=== PATIENT | female | born 1950 | race Two or more races ===

== ENCOUNTER 2016-08-29 10:38 | Inpatient (IN) | payer MEDICARE, MEDICAID ==
--- NOTE | 2016-08-29 10:44 | ED Physician Chart ---
Chief Complaint/HPI - Patient Information Date Seen:: 08/29/16 Time Seen:: 10:40 Chief Complaint:: skin infection History of Present Illness:: 66-year-old female history of schizophrenia and dementia, brought in by EMS from alf facility with acute, worsening, constant, moderate to severe, skin infection on the left confucianism of her face 4 days. Has associated pain in the area when she wears her glasses. Allergies:: Allergies Allergy/AdvReac Type Severity Reaction Status Date / Time MDX No Known Allergies - Nka Allergy Verified 08/04/14 17:01 [No Known Allergies - Nka] Historian:: Patient, EMS Review:: Nurse's Note Reviewed, EMS run form Reviewed Review of Systems - Review of Systems Other: Complete system review otherwise unremarkable except as noted in HPI. Past Medical History - Past Medical History Past Medical History: Dementia Family History: None Social History: Non Smoker, No Alcohol, No Drug Use, Care Facility Surgical History: None Psychiatricy History: Schizophrenia Medication: Reviewed Family Medical History - Family Member Mother History Unknown: Yes Ethnicity: Physical Exam - Physical Examination Other:: INITIAL VITAL SIGNS: Reviewed by me GENERAL: Alert and interactive, demented but cooperative. No acute distress HEAD: Head is normocephalic and atraumatic EYES: EOMI. . No scleral icterus. No conjunctival injection ENT: Moist mucous membranes. NECK: Supple. No masses. Full range of motion RESPIRATORY: No tachypnea. Clear breath sounds bilaterally. No wheezing, rales, or rhonchi CV: Regular rate and rhythm. No murmurs, rubs, or gallops ABDOMEN: Soft, non-distended, non-tender. No guarding. No rebound. No masses. EXTREMITIES: No deformity. No cyanosis. No edema. SKIN: There is a 2 x 1 cm area of induration with slight fluctuant mass on the left confucianism. There is also surrounding erythema consistent with cellulitis. NEUROLOGIC: Alert and oriented. Face is symmetric. Speech is normal. Moves all extremities equally. Motor and sensory distally intact. Assessment - Procedures Procedures:: Abscess Incision and Drainage with irrigation by me: Location: Left confucianism Anesthesia: Local 1% Lidocaine Technique: Irrigated. Disrupted loculations w/ instrumentation Packing: None Complications: Neurovascularly intact post procedure 48 hour wound check. Scar minimization instructions given. Informed Consent: Procedure/risk/benefits explained by MD: Yes ED Septic Shock - . Is Septic Shock (SBP<90, OR Lactate>4 mmol\L) present?: No Reassessment (Disposition) - Reassessment Reassessment:: The patient's blood pressure was elevated (>120/80) but appears stable without evidence of hypertensive emergency or urgency. The patient was counseled about the risks hypertension urged to pursue outpatient monitoring and therapy within a week with her primary care physician. I&D performed to left confucianism. Copious amount of purulent fluid extracted. Surrounding cellulitis treated with Bactrim and Keflex. Hypokalemia 3.4. Discussed case with admitting physician. Concern given underlying dementia and other comorbidities at the cellulitis may need further workup and treatment especially Given that its on her face. Reassessment Condition:: Unchanged - Diagnosis Diagnosis:: Abscess, left confucianism of face Cellulitis, left confucianism of face Hypokalemia Elevated blood pressure without the diagnosis of hypertension - Patient Disposition Discharge/Transfer:: Acute Care w/in this hosp Admitted to:: Med/Surg Spoke to:: Rhett Cardenas Admitting Medical Physician:: Daniela Stephen Time:: 11:23 Condition at Disposition:: Improved ED Discharge Plan - Patient Disposition Admit/Discharge/Transfer: Acute Care w/in this hosp Condition at Disposition: Improved Instructions: Abscess, Cellulitis
[2016-08-29] MEDS ORDERED: Sodium Chloride 0.9% 1,000 ML IV ONE (10:45)
[2016-08-29] MEDS ORDERED: Sulfamethoxazole/TMP 800/160mg Tab PO ONE (10:51)
[2016-08-29] MEDS ORDERED: Sulfamethoxazole/TMP 800/160mg Tab ONE (10:58)
[2016-08-29 11:08] LABS: % BASOPHILS 0.8 % (0.0-2.0); % EOSINOPHILS 2.2 % (0.0-5.0); % LYMPHOCYTES 12.1 % (20.0-50.0); % MONOCYTES 6.6 % (2.0-10.0); % NEUTROPHILS 78.3 % (40.0-80.0); HEMATOCRIT 40.4 % (35.0-45.0); HEMOGLOBIN 13.3 gm/dL (11.7-16.1); MEAN CELL VOLUME 89.4 fl (81-100); MEAN CORPUSCULAR HEMOGLOBIN 29.5 pg (27.0-31.0); MEAN PLATELET VOLUME 7.9 fl; NEUTROPHILE ABSOLUTE 5.1 Th/cmm (1.8-8.0); PLATELET COUNT 196 Th/cmm (150-400); RED BLOOD COUNT 4.52 Mil/cmm (3.80-5.20); RED CELL DISTRIBUTION WIDTH 13.1 % (11.5-20.0); WHITE BLOOD COUNT 6.5 Th/cmm (4.8-10.8)
[2016-08-29 11:19] LABS: SODIUM SERUM 138 mEq/L (136-145)
[2016-08-29 11:20] LABS: ALB/GLOB RATIO 1.2 (1.0-1.8); ALKALINE PHOSPHATASE 91 U/L (34-104); ANION GAP 12.7 (7.0-16.0); BILIRUBIN,TOTAL 0.6 mg/dL (0.3-1.0); BUN - UREA NITROGEN 16 mg/dL (7-25); BUN/CREATININE RATIO 22.9; CARBON DIOXIDE 28.7 mEq/L (21.0-31.0); CHLORIDE 100 mEq/L (98-107); CREATININE - SERUM 0.7 mg/dL (0.6-1.2); GLUCOSE 135 mg/dL (70-105); POTASSIUM SERUM 3.4 mEq/L (3.5-5.1); SGOT 20 U/L (13-39); SGPT/ALT 22 U/L (7-52)
[2016-08-29 11:45] LABS: URINE BILIRUBIN NEGATIVE (NEGATIVE); URINE BLOOD NEGATIVE (NEGATIVE); URINE COLOR YELLOW; URINE GLUCOSE (UA) NEGATIVE (NEGATIVE); URINE KETONE NEGATIVE (NEGATIVE); URINE PROTEIN NEGATIVE (NEGATIVE); URINE UROBILINOGEN 0.2 E.U./dL (0.2 - 1.0)
--- NOTE | 2016-08-29 14:17 | Admit Criteria Form ---
Admit Criteria Forms - Admit Criteria Diagnosis: CELLULITIS Clinical Indications for Admission to Inpatient Care (Place 'X' for any and all applicable criteria): Admission is indicated for ANY ONE of the following(1)(2)(3)(4)(5): [ ]I. Limb-threatening infection [ ]II. High-risk comorbid condition as indicated by ANY ONE of the following: [ ]a) Uncontrolled diabetes (eg, HbA1c greater than 10% (0.1)) [ ]b) Cirrhosis [ ]c) Neutropenia [ ]d) Asplenia [ ]e) Immunosuppression [ ]f) Symptomatic heart failure [ ]III. Failure of outpatient therapy as indicated by ALL of the following: [ ]a) Progression or no improvement after adequate trial (minimum of 48 hours, with longer period for stable lower extremity infection) [ ]b) Adequate antibiotic regimen as indicated by use of ANY ONE of the following: [ ]i) First-generation cephalosporin (e.g., cephalexin) [ ]ii) Antistaphylococcal penicillin (e.g., dicloxacillin) [ ]iii) Penicillin-allergic patient regimen (clindamycin, extended-spectrum fluoroquinolone, or doxycycline) [ ]iv) Resistant organism (eg, methicillin-resistant Staphylococcus aureus) regimen (6) [ ]c) Outpatient intravenous therapy regimen is not appropriate due to ANY ONE of the following. (7)(8)(9)(10): [ ]i) It was tried and was not successful (eg, progression of infection). [ ]ii) It is not available or cannot be arranged in a clinically appropriate time frame (e.g., the next day). [ ]iii) Clinical presentation (eg, acuity of infection, rapidity of progression, confirmed or suspected bacteremia) is judged to require ALL of the following: [ ]1) Immediate initiation of intravenous therapy ( eg, cannot wait for next day) [ ]2) Intensity of patient monitoring and observation (eg, vital sign measurement, checks for infection progression) that cannot be provided at other than inpatient level of care [ ]IV. Mental status changes [ ]V. Bacteremia [ ]. Hemodynamic instability [ ]VII. Suspected necrotizing soft tissue infection (e.g., gas in tissue)(11)( 12) [ ]VIII. Orbital infection (13)(14) [X ]IX. Associated surgical procedure (e.g., abscess drainage, debridement) not amenable to outpatient, emergency department, or observation care [ ]X. Cutaneous gangrene [ ]XI. High fever (temperature greater than 39.5 degrees C (103.1 degrees F) (oral)) not responsive to outpatient, emergency department, or observation care therapy [ ]XIII. Inpatient admission required rather than observation care (Also use Cellulitis: Observation Care as appropriate) because of ANY ONE of the following : [ ]a) Periorbital or perineal infection that is severe or worsening [ ]b) Severe pain requiring acute inpatient management [ ]c) IV fluid to replace significant ongoing (e.g., for over 24 hours) losses (greater than 3L/m2 per day) [ ]d) Compartment syndrome monitoring (17) [ ]e) Strict or protective (eg, laminar flow) isolation [ ]f) Urgent debridement or skin grafting [ ]g) Bone or joint debridement [ ]h) Immediate inpatient surgery [ ]i) Other condition, treatment or monitoring requiring inpatient admission Extended stay beyond goal length of stay may be needed for (1)(18): [ ]a) Necrotizing soft tissue infection or fasciitis [ ]b) Gram-negative infection [ ]c) Methicillin-resistant Staphylococcal aureus (MRSA) infection [ ]d) Peripheral venous insufficiency with cellulitis [ ]e) Extensive edema [ ]f) Sepsis or continued Hemodynamic instability [ ]g) Continued high fever or mental status change [ ]h) Bacteremia [ ]i) Active serious comorbid conditions ( eg, heart failure, renal insufficiency) The original [facility] [employer] content created by [employer] has been revised. The portions of the content which have been revised are identified through the use of italic text or in bold, and [facility] has neither reviewed nor approved the modified material. All other unmodified content is copyright [facility] Please see references footnoted in the original [facility] edition 2016 Admit Criteria Met?: Yes
[2016-08-29] MEDS ORDERED: Pneumococcal Vaccine 0.5 mL Vial IM ONE (15:54)
[2016-08-29] MEDS ORDERED: Influenza Vaccine 0.5 mL Syr IM ONE (15:54)
[2016-08-29] MEDS ORDERED: cefTRIAXone 1 GM in Sodium Chloride 0.9% 50 ML IV SCH (17:30)
[2016-08-29] MEDS: INSULIN ASPART SLIDING SCALE 100 UNITS/ML UNIT SUBQ SCH ×2 (18:56→22:16)
[2016-08-30 06:06] LABS: % BASOPHILS 1.6 % (0.0-2.0); % EOSINOPHILS 6.1 % (0.0-5.0); % LYMPHOCYTES 15.4 % (20.0-50.0); % MONOCYTES 9.5 % (2.0-10.0); % NEUTROPHILS 67.4 % (40.0-80.0); ANION GAP 11.8 (7.0-16.0); BUN - UREA NITROGEN 19 mg/dL (7-25); BUN/CREATININE RATIO 27.1; CALCIUM SERUM 9.5 mg/dL (8.6-10.3); CARBON DIOXIDE 25.3 mEq/L (21.0-31.0); CHLORIDE 104 mEq/L (98-107); CREATININE - SERUM 0.7 mg/dL (0.6-1.2); GLUCOSE 139 mg/dL (70-105); HEMATOCRIT 37.2 % (35.0-45.0); HEMOGLOBIN 12.5 gm/dL (11.7-16.1); MAGNESIUM 2.2 mg/dL (1.9-2.7); MEAN CELL VOLUME 89.1 fl (81-100); MEAN CORPUSCULAR HGB CONC 33.7 pg (28.0-36.0); MEAN PLATELET VOLUME 8.4 fl; NEUTROPHILE ABSOLUTE 3.9 Th/cmm (1.8-8.0); PLATELET COUNT 180 Th/cmm (150-400); POTASSIUM SERUM 4.1 mEq/L (3.5-5.1); RED BLOOD COUNT 4.18 Mil/cmm (3.80-5.20); RED CELL DISTRIBUTION WIDTH 13.3 % (11.5-20.0); SODIUM SERUM 137 mEq/L (136-145); WHITE BLOOD COUNT 5.7 Th/cmm (4.8-10.8)
[2016-08-30] MEDS: INSULIN ASPART SLIDING SCALE 100 UNITS/ML UNIT SUBQ SCH ×2 (09:22→12:13)
[2016-08-30] MEDS ORDERED: cefTRIAXone 1 GM in 0.9% NS 50 ML IV SCH (10:00)
--- NOTE | 2016-08-30 11:40 | History & Physical ---
CHIEF COMPLAINT: Left temporal pain, redness, swelling. HISTORY OF PRESENT ILLNESS: A 66-year-old female with history of dementia, schizophrenia, hyperlipidemia, diabetes mellitus who presented to the ER with left-sided facial area of redness, pain and swelling. She states that the symptoms began about 3-4 days prior to admission. The patient was seen at the ER, was diagnosed with a left protestant abscess and underwent I and D without any complications. The patient was noted to have elevated BP readings and on labs, was noted to have mild hypokalemia; therefore she was electively admitted for a 24-hour observation. On further questioning, the patient denies any fever, chills or any similar episodes of skin infection or abscesses. She does state that she uses her glasses somewhat tight and that had may provoke the infection. Overnight, she has done well with no major discharge noted from that incision and drainage. PAST MEDICAL HISTORY: As noted above. PAST SURGICAL HISTORY: None. FAMILY HISTORY: Noncontributory. SOCIAL HISTORY: Nonsmoker and nondrinker. Lives in acute care facility. ALLERGIES: NKDA. OUTPATIENT MEDICATIONS: Pravastatin 10 mg every day, loratadine 10 mg every day, Risperdal 2 mg b.i.d., glipizide 20 mg b.i.d., Glucophage 1000 mg b.i.d., regular sliding scale per protocol, nystatin cream with triamcinolone b.i.d., Bactroban ointment b.i.d. and triamcinolone cream b.i.d. REVIEW OF SYSTEMS: CONSTITUTIONAL: The patient denies any fever or chills. CARDIAC: No chest pain, palpitations. PULMONARY: No cough or sputum production. GASTROINTESTINAL: No bowel habit changes including no nausea, vomiting, diarrhea, constipation. GENITOURINARY: No bladder habit changes including no dysuria, hematuria or nocturia. NEUROLOGIC: No changes in vision, no headaches, no blurry vision. PHYSICAL EXAMINATION: VITAL SIGNS: Temperature 97.8, she has been afebrile, pulse 60, respirations 17, BP 100/62. HEENT: She is normocephalic, atraumatic. On the left temporal area, there is a consistency with I and D laceration with no major discharge at this time. There is minimal erythema surrounding it. IMPRESSION: 1. Left protestant abscess, status post I and D. 2. Cellulitis of the left protestant of the face. 3. Mild hypokalemia. 4. History of essential hypertension with slight elevation. 5. Type 2 diabetes. 6. History of dementia with psych features. PLAN: The patient has been admitted to the medical floor where she was placed on IV antibiotics and has received wound care. She has been kept on her other medications as scheduled. She has been placed on p.r.n. clonidine for SBP greater than 160. Given that the patient's course has been uneventful, she will be discharged back to [facility] with p.o. antibiotics and orders for daily wound care. [facility]# [id number]
--- NOTE | 2016-08-30 20:21 | Discharge Summary ---
ADMITTING DIAGNOSES: Left temporal abscess with cellulitis; hypertension, out of control; and hypokalemia. DISCHARGE DIAGNOSES: Left temporal abscess with cellulitis status post incision and drainage. SECONDARY DIAGNOSES: History of type 2 diabetes, history of hypertension, and history of dementia with psych features. CONSULTANTS: There was no rehabilitation consultant used during this admission. PROCEDURES: She had an I and D done at the ER with no complications. DISCHARGE MEDICATIONS: Keflex 500 mg q.i.d. x 10 days, glipizide 20 b.i.d., insulin sliding scale per protocol, Claritin 10 mg every day, metformin 1000 mg b.i.d., Bactroban ointment b.i.d., Nystatin/triamcinolone cream b.i.d. to affected area, pravastatin 10 mg every day, and Risperdal 2 mg b.i.d. BRIEF HOSPITAL COURSE: The patient came to the ER with a complaint of left facial pain, redness, and swelling for a few days. She apparently was given pain medication by the facility with no improvement. Therefore, she was transferred to the ER where she underwent an I and D done by ER staff with no complications. She was noted to have elevation of blood pressure before the procedure and her labs also did show hypokalemia. She was electively admitted overnight for 24-hour observation and has remained stable since then. She was placed on IV antibiotics and has received wound care. She was also kept on her medications as scheduled. Her blood pressure has remained stable since admission, not requiring clonidine p.r.n. since been admitted. Her labs also have remained stable with a resolution of her hypokalemia. CONDITION ON DISCHARGE: Stable. DISPOSITION: The patient will be transferred back to [facility] under the care of Dr. Phillip. I instructed SDR staff to do daily wound check-ups. JOB# [id number] [facility]
== END 2016-08-30 13:10 | DRG 603 ==
LOC: ER 10:38 → MSI 13:30
PROVIDERS: ADMIT Internal Medicine; ATTEND Internal Medicine
PROC: 0H91XZZ Drainage of Face Skin, External Approach (ICD-10-PCS; principal; 2016-08-29)
DX: L02.01 Cutaneous abscess of face (principal); F03.90 Unspecified dementia, unspecified severity, without behavioral disturbance, psychotic disturbance, mood disturbance, and anxiety; F20.9 Schizophrenia, unspecified; L03.211 Cellulitis of face; E11.9 Type 2 diabetes mellitus without complications; I10 Essential (primary) hypertension; E87.6 Hypokalemia; E78.5 Hyperlipidemia, unspecified
CPT/HCPCS: 10060; 36415-UA; 80048-TC; 80053-TC; 81003-TC; 82948-90; 83605; 83735-TC; 85025-TC; A4217; J0696; J2001; Z7610